=== PATIENT | male | born 1945 | race Caucasian/White ===

== ENCOUNTER 2024-06-11 12:11 | Observation (INO) | payer MEDICARE, OTHER ==
[~2024-06-11] VITALS: Ht 170.2 cm; Wt 80.0 kg
[2024-06-11] MEDS ORDERED: Acetaminophen 325 MG TAB PO ONE (13:00)
[2024-06-11] MEDS ORDERED: NS 1,000 ML IV SCH (13:00)
[2024-06-11 13:23] LABS: ALANINE AMINOTRANSFERASE 17 U/L (0-55); ALBUMIN 3.7 g/dL (3.4-4.8); ALKALINE PHOSPHATASE 69 U/L (40-150); ANION GAP 13 mmol/L (7-16); AST,SGOT 16 U/L (5-34); BILIRUBIN,TOTAL 2.1 mg/dL (0.2-1.2); BLOOD UREA NITROGEN 11 mg/dL (8-26); CALCIUM 10.2 mg/dL (8.4-10.2); CHLORIDE 104 mEq/L (98-107); CREATININE, serum 0.82 mg/dL (0.72-1.25); GLUCOSE 100 mg/dL (70-99); SODIUM 137 mEq/L (136-145)
[2024-06-11] MEDS ORDERED: cefTRIAXone 1 G in Water For Injection,Sterile 10 ML IV ONE (13:30)
[2024-06-11 13:36] LABS: TROPONIN-I < 0.010 ng/mL (0.00-0.033)
[2024-06-11 13:38] LABS: BASO % 0.3 % (0.0-2.0); EOS % 0.3 % (0.0-4.0); GRAN # 5.8 K/mm3 (1.4-6.5); GRAN % 88.6 % (42.2-75.2); HEMOGLOBIN 14.1 g/dl (13.5-18.0); LYMPH # 0.4 K/mm3 (1.2-3.4); LYMPH % 6.4 % (20.0-51.0); MEAN CELL VOLUME 97 fl (80.0-100.0); MEAN CORPUSCULAR HEMOGLOBIN 33 pg (27-31); MEAN CORPUSCULAR HGB CONC 34 g/dl (33.0-37.0); MEAN PLATELET VOLUME 8.8 fl (7.4-10.4); MONO # 0.3 K/mm3 (0.1-0.6); MONO % 4.1 % (1.7-9.3); PLATELET COUNT 200 K/mm3 (130-400); RED BLOOD COUNT 4.22 M/mm3 (4.20-5.60); REDCELL DISTRIBUTION WIDTH-CV 12.6 % (11.5-14.5)
[2024-06-11] MEDS ORDERED: LEXAPRO 10MG10 MG PO (13:54)
[2024-06-11] MEDS ORDERED: LIPITOR 40MG TA40 MG PO (13:54)
[2024-06-11] MEDS ORDERED: SYNTHROID0.05 MG/TA PO (13:54)
[2024-06-11] MEDS ORDERED: ZANAFLEX 4MG TAB4 MG PO (13:55)
[2024-06-11] MEDS ORDERED: MULTI-VITAMIN W1 TA1 PO (13:55)
[2024-06-11] MEDS ORDERED: SANCTURA XR60 MG PO (13:55)
[2024-06-11] MEDS ORDERED: PEPCID AC 10MG10 MG PO (13:55)
[2024-06-11] MEDS ORDERED: COLACE 100100 MG/CAP PO (13:56)
[2024-06-11] MEDS ORDERED: TYLENOL 8 HR PO (13:56)
[2024-06-11] MEDS ORDERED: CLARITIN 1010 MG/TAB PO (13:56)
[2024-06-11] MEDS ORDERED: ASTELIN NASAL S34 ML NS (13:56)
[2024-06-11] MEDS ORDERED: LR 1,000 ML IV SCH (14:30)
[2024-06-11] MEDS ORDERED: Ondansetron 4 MG/2 ML VIAL IV PRN (14:30)
[2024-06-11] MEDS ORDERED: Acetaminophen 325 MG TAB PO PRN (14:30)
[2024-06-11] MEDS ORDERED: Polyethylene Glycol 3350 17 GM PDS PO PRN (14:30)
[2024-06-11] MEDS ORDERED: Doxycycline Monohydrate 100 MG CAP PO SCH (14:35)
[2024-06-11] MEDS ORDERED: tiZANidine 4 MG TAB PO PRN (14:45)
[2024-06-11] MEDS ORDERED: Azelastine 0.1% Nasal Spray 30 ML BOTTLE NS PRN (14:45)
[2024-06-11 15:00] VITALS: BP 111/71; PULSE 87; TEMP 97.8
[2024-06-11 15:10] LABS: COLLECTION METHOD CLEAN CATCH
[2024-06-11 15:29] LABS: PH 6.5 (5.0-8.5); URINE APPEARANCE CLOUDY (CLEAR/HAZY); URINE COLOR GREEN (YELLOW); URINE GLUCOSE Negative (NEGATIVE); URINE KETONE Negative (NEGATIVE); URINE PROTEIN(semi-quant) 3+ (NEGATIVE)
[2024-06-11 15:30] LABS: URINE BLOOD 3+ (NEGATIVE); URINE NITRATE Positive (NEGATIVE); URINE UROBILINOGEN 0.2 E.U/dL (0.2-1.0)
[2024-06-11 15:43] VITALS: BP 117/75; PULSE 44; TEMP 98
[2024-06-11 20:00] VITALS: BP 98/59; PULSE 81; TEMP 98.3
[2024-06-11] MEDS ORDERED: Atorvastatin 40 MG TAB PO SCH (21:00)
[2024-06-11] MEDS ORDERED: Famotidine 20 MG TAB PO SCH (21:00)
[2024-06-11 23:58] VITALS: BP 97/59; PULSE 77; TEMP 98
[2024-06-12 03:53] VITALS: BP 105/61; PULSE 69; TEMP 98.5
--- NOTE | 2024-06-12 05:46 | NUR ---
pt alert and oriented, VSS. Says he feels ok, no pain afebrile. Slept well overnight.
[2024-06-12 06:45] LABS: BASO # 0.1 K/mm3 (0.0-0.2); BASO % 0.7 % (0.0-2.0); EOS # 0.1 K/mm3 (0.0-0.7); EOS % 0.7 % (0.0-4.0); GRAN % 72.1 % (42.2-75.2); LYMPH # 0.8 K/mm3 (1.2-3.4); LYMPH % 11.1 % (20.0-51.0); MEAN CORPUSCULAR HGB CONC 35 g/dl (33.0-37.0); MEAN PLATELET VOLUME 9.1 fl (7.4-10.4); MONO # 1.1 K/mm3 (0.1-0.6); MONO % 15.1 % (1.7-9.3); PLATELET COUNT 150 K/mm3 (130-400); RED BLOOD COUNT 3.24 M/mm3 (4.20-5.60); REDCELL DISTRIBUTION WIDTH-CV 12.7 % (11.5-14.5)
[2024-06-12 06:54] LABS: HEMOGLOBIN 11.1 g/dl (13.5-18.0); MEAN CELL VOLUME 99 fl (80.0-100.0); MEAN CORPUSCULAR HEMOGLOBIN 34 pg (27-31)
[2024-06-12 07:02] LABS: CALCIUM 8.9 mg/dL (8.4-10.2); CREATININE, serum 0.72 mg/dL (0.72-1.25); POTASSIUM 3.6 mEq/L (3.5-4.5)
[2024-06-12 08:00] VITALS: BP 102/63; PULSE 75; TEMP 98.1
--- NOTE | 2024-06-12 08:00 | NUR ---
PT AWAKE AND RESTING IN BED. SCHEDULED MEDS GIVEN PER eMAR. DENIES PAIN AND SOA. LR INFUSING AT 75 ML/HR. ALL NEEDS MET AT THIS TIME.
--- NOTE | 2024-06-12 08:32 | NUR ---
MD AWARE OF HGB DELTA CHECK.
[2024-06-12] MEDS ORDERED: [UNRECOGNIZED DRUG - OTHER] PO SCH (09:00)
[2024-06-12] MEDS ORDERED: Escitalopram 10 MG TAB PO SCH (09:00)
[2024-06-12] MEDS ORDERED: Loratadine 10 MG TAB PO SCH (09:00)
[2024-06-12] MEDS ORDERED: Docusate Sodium 100 MG CAP PO SCH (09:00)
[2024-06-12] MEDS ORDERED: TROSPIUM 60 MG PO SCH (09:00)
[2024-06-12] MEDS ORDERED: MONODOX100 PO (09:08)
[2024-06-12] MEDS ORDERED: CEFTIN500 MG PO (09:09)
--- NOTE | 2024-06-12 09:43 | NUR ---
REVIEW DISCHARGE INSTRUCTIONS WITH PT AND INCLUDING F/U APPOINTMENTS, EDUCATION, AND MEDICATIONS. PT AND VERBALIZED UNDERSTANDING. D/C FLUIDS AND D/C INT IN L WRIST. NO FURTHER CONCERNS.
--- NOTE | 2024-06-12 09:56 | NUR ---
CONCRETE CRUSHER LOADER OPERATOR met with Pt and , Mary, bedside to complete initial consult and discuss discharge planning. Mary stated they live in and their hospital care is there. PCP is María Castillo and they use a pharmacy in but will go to [facility] in [place] if they need to cloth picker meds here. Pt and Mary state they have a copy of their DPOA in that state Mary, , as DPOA. Pt is still very independent at home and still drives to all of his appointments. Pt uses no assistive devices at home. 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 Pt and Mary have no concerns of Pt returning home and denied any additional resources. CONCRETE CRUSHER LOADER OPERATOR was notified Pt will d/c today. D/C: Home w/ Mary,
--- NOTE | 2024-06-12 10:15 | NUR ---
PT ESCORTED OFF UNIT TO PERSONAL VEHICLE AT THIS TIME VIA WHEELCHAIR.
[2024-06-12] MEDS ORDERED: cefTRIAXone 1 G in Water For Injection,Sterile 10 ML IV SCH (14:00)
== END 2024-06-12 10:20 | disposition home or self-care (01) ==
LOC: COL.ER 12:11 → EDSEX 12:13 → MEDICAL 13:25
PROVIDERS: Physician Assistant; ADMIT Internal Medicine
DX: J18.1 Lobar pneumonia, unspecified organism (principal); A41.9 Sepsis, unspecified organism; N39.0 Urinary tract infection, site not specified; G89.29 Other chronic pain; M54.9 Dorsalgia, unspecified; K21.9 Gastro-esophageal reflux disease without esophagitis; J30.2 Other seasonal allergic rhinitis; N39.3 Stress incontinence (female) (male); F32.A Depression, unspecified; I25.10 Atherosclerotic heart disease of native coronary artery without angina pectoris; Z95.1 Presence of aortocoronary bypass graft; Z79.899 Other long term (current) drug therapy; Z79.890 Hormone replacement therapy; Z85.46 Personal history of malignant neoplasm of prostate; Z85.828 Personal history of other malignant neoplasm of skin; E03.9 Hypothyroidism, unspecified
CPT/HCPCS: G0378; J0696; J1650; J7030; J7120